=== PATIENT | male | born 1955 | race Caucasian/White ===

== ENCOUNTER 2019-01-21 06:22 | Observation (INO) | payer BC ==
[~2019-01-21] VITALS: Ht 177.8 cm; Wt 81.4 kg
--- NOTE | ~2019-01-21 | HEMODYNAMI ---
PATIENT:DAVID SALGADO MEDICAL RECORD: [id number] : 59 LOCATION:[facility] ADMISSION DATE: 01/21/19 Generatedon:01/21/20197:47 Patient name: DAVID SALGADO Patient #: [id number] SSN: : 1955 Date of study: 01/21/2019 Page: Of Hemodynamic Procedure Report Patient Data Patient Demographics Procedure consent was obtained First Name: DAVID Gender: Male Last Name: NAOMI : 1955 Middle Initial: M Age: 63 year(s) Patient #: [id number] Race: Unknown Additional ID: [id number] Contact details Address: [facility] [place] State: [place] City: [place] Zip code: [address] Past Medical History Allergies Allergen Reaction Date Comments Reported Codeine 01/21/2019 Admission Admission Data Admission Date: 01/21/2019 Admission Time: 6:22 Admit Source: Transfer Insurance Payor: Private acute care facility health insurance Height (in.): 70 BSA: 1.99 (m2) Height (cm.): 177.8 BMI: 25.74 (kg/m2) Weight (lbs.): 179.37 Weight (kg.): 81.36 Lab Results Lab Result Date: 01/21/2019 Lab Result Time: 0:00 Biochemistry Name Units Result Min Max BUN mg/dl 15 --(--*-)-- 7 18 Creatinine mg/dl 1.1 --(--*-)-- 0.6 1.3 CBC Name Units Result Min Max Hematocrit % 40.5 -*(----)-- 42 54 Hemoglobin g/dl 14 --(*---)-- 13.5 17.5 Procedure Procedure Types Cath Procedure Diagnostic Procedure [facility] w/Coronaries PCI Procedure AMI/SVG/PHOTO MASK CLEANER PTCA or Stent Procedure Description Procedure Date Procedure Date: 01/21/2019 Procedure Start Time: 7:36 Procedure End Time: 7:46 Procedure Staff Name Function Vasyl Bradley MD Performing Physician Beatrice Mosqueda RT Monitor Jennifer Kumar RN Nurse Geraldine Mendez RN Beef Cattle Farm Worker Lexa Henao RT Scrub Additional PCI Information PCI indication: Immediate PCI for STEMI Procedure Data Cath Procedure Fluoroscopy Diagnostic fluoroscopy Total fluoroscopy Time: 0.5 time: 0.5 min min Diagnostic fluoroscopy Total fluoroscopy dose: 286 dose: 286 mGy mGy Contrast Material Contrast Material Type Amount (ml) Isovue 300 42 Entry Location Entry Primary Successful Side Size Upsize Upsize Entry Closure Succes sful Closure Location (Fr) 1 (Fr) 2 (Fr) Remarks Device Remarks Femoral Right 6 Fr Exoseal artery Short Estimated blood loss: 5 ml Diagnostic catheters Device Type Used For End Catheter Placement MULTIPACK Pigtail 5 Fr LV Angiography catheter MULTIPACK JL 4.0 5Fr Left Coronary catheter Angiography MULTIPACK 3DRC 5Fr Right Coronary catheter Angiography Procedure Complications No complications Procedure Medications Medication Administration Route Dosage 0.9% NaCl I.V. 100 ml/hr Oxygen etCO2 Nasal cannula 2 l/min Lidocaine 2% added to field 20 Heparin Flush Bag added to field 2 bags (1000units/500ml NS) Versed I.V. 2 mg Fentanyl I.V. 50 mcg Versed I.V. 2 mg Fentanyl I.V. 50 mcg Versed I.V. 2 mg Fentanyl I.V. 50 mcg Hemodynamics Rest BSA: 1.99 (m2) HGB: 14 (g/dl) O2 Consumption: Estimated: 226.58 (ml/min) O2 Cons umption indexed: Estimated:113.86 (ml/min/m) Heart Rate: 61 (bpm) Snapshots Pre Cath Intra NCS Post Cath Vital Signs Time Heart Resp SPO2 etCO2 NIBP (mmHg) Rhythm Pain Sedation Rate (ipm) (%) (mmHg) Status Level (bpm) 7:25:49 70 22 97 27.6 151/71(97) NSR 0 (11) 10(A) , No pain 7:30:03 71 17 99 30 139/97(114) NSR 0 (11) 10(A) , No pain 7:34:54 71 15 96 26.1 147/101(113) NSR 0 (11) 10(A) , No pain 7:39:10 66 12 96 28.2 134/82(103) NSR 0 (11) 10(A) , No pain 7:43:46 67 13 96 20.9 135/83(100) NSR 0 (11) 10(A) , No pain Medications Time Medication Route Dose Verified Delivered Reason Notes Effe ctiveness by by 7:28:01 0.9% NaCl I.V. 100 Vasyl Jennifer used for ml/hr Kirk Kumar cmo 7:28:08 Oxygen etCO2 2 Vasyl Jennifer used for Nasal l/min Kirk Kumar procedure cannula RN 7:28:14 Lidocaine 2% added 20ml Vasyl Vasyl for local to vial Kirk Bradley MD anesthetic field 7:28:18 Heparin Flush added 2 Vasyl Vasyl used for Bag to bags Kirk Bradley MD procedure (1000units/500ml field NS) 7:28:59 Versed I.V. 2 mg Vasyl Jennifer for Kirk Kumar sedation RN 7:29:06 Fentanyl I.V. 50 Vasyl Jennifer for mcg Kirk Kumar sedation RN 7:36:58 Versed I.V. 2 mg Vasyl Jennifer for Kirk Kumar sedation RN 7:37:02 Fentanyl I.V. 50 Vasyl Jennifer for mcg Kirk Kumar sedation RN 7:40:08 Versed I.V. 2 mg Vasyl Jennifer for Kirk Kumar sedation RN 7:40:17 Fentanyl I.V. 50 Vasyl Jennifer for mcg Kirk Kumar sedation picker box operator Log Time Note 7:10:04 Procedure type changed to Cath procedure, Diagnostic procedure, LHC, LHC w/Coronaries, PCI procedure, AMI/SVG/PHOTO MASK CLEANER PTCA or Stent 7:10:25 PCI Indication : Immediate PCI for STEMI 7:10:42 Time tracking: Regular hours (M-F 7:00 - 5:00) 7:10:48 Plan of Care:Hemodynamics will remain stable., Cardiac rhythm will remain stable., Comfort level will be maintained., Respiratory function will remain adequate., Patient/ family verbilizes understanding of procedure., Procedure tolerated without complication., Recovers from procedure without complications.. 7:16:04 Geraldine Mendez RN sent for patient. Start room use. 7:20:52 Patient received from ED to CCL 1 Alert and oriented. Tansferred to table in Supine position. 7:20:53 Warm blankets applied, and viet hugger turned on for patient comfort. 7:20:53 Correct patient and procedure confirmed by team. 7:20:55 Signed procedure consent form obtained from patient. 7:20:55 ECG and BP/O2 sat monitors applied to patient. 7:20:56 Full Disclosure recording started 7:23:04 Baseline sample Acquired. 7:23:07 Rhythm: sinus rhythm 7:23:12 H&P Date Dictated: 01/21/2019 ER History on chart.. 7:23:13 Pre-procedure instructions explained to patient. 7:23:13 Pre-op teaching completed and patient verbalized understanding. 7:23:15 Family in waiting room. 7:23:21 Patient allergic to Codeine 7:23:23 Is patient on blood thinner?Yes 7:23:34 PRE LOADED ON PLAVIX 7:23:35 Patient diabetic? No. 7:23:38 Snore? Yes 7:23:39 Sleep apnea? Yes 7:23:40 Deviated septum? No 7:23:46 Opens mouth fully? Yes 7:23:47 Sticks out tongue? Yes 7:23:50 Airway obstruction? Yes COPD 7:23:53 Dentures? Yes OUT 7:24:19 IV patent on arrival in right antecubital with 0.9% NaCl at O. 7:24:23 Right groin area was prepped with chlora-prep and draped in sterile fashion 7:24:24 Alarms reviewed by R. N. 7:24:25 Sharps counted by scrub and verified by R.N. 7:24:30 Vital chart was started 7:24:33 Baseline sample Acquired. 7:26:08 Lab Result : BUN 15 mg/dl 7:26:08 Lab Result : Hemoglobin 14 g/dl 7:26:08 Lab Result : Creatinine 1.1 mg/dl 7:26:08 Lab Result : Hematocrit 40.5 % 7:26:12 --------ALL STOP TIME OUT------ 7:26:12 Final Timeout: patient, procedure, and site verified with staff and physician. All members of the team are in agreement. 7:26:14 Right groin site verified by team. 7:26:19 Maximum allowable Isovue 300 dose 300ml. Physician notified. (300ml for normal creatinines. For patients with creatinine of 1.7 or higher multiply weight(kg) x 5 divided by creatinine.) 7:26:23 Fire Safety Assessment: A--An alcohol-based skin anteseptic being used preoperatively., C--Open oxygen or nitrous oxide is being used., D--An ESU, laser, or fiber-optic light is being used. 7:26:26 Physical assessment completed. ASA score P 3 - A patient with severe systemic disease as per Beatrice Mosqueda RT(R). 7:26:30 Sedation plan: IV Moderate Sedation Medication:Versed, Fentanyl 7:26:44 Use device set Femoral Dx 7:26:48 Use device set TAUTH PCI 7:27:46 IV Extension Set opened to sterile field. 7:27:49 Quick Combo opened to sterile field. 7:27:53 ACIST Syringe (47825) opened to sterile field. 7:27:54 Bag Decanter (2002) opened to sterile field. 7:27:55 Medline Cath Pack ([id number]) opened to sterile field. 7:27:55 DIAGNOSTIC WIRE .035 260cm J wire (314296) opened to sterile field. 7:27:56 ACIST Hand Control (26634) opened to sterile field. 7:27:57 ACIST Manifold (24611) opened to sterile field. 7:27:58 DIAGNOSTIC Multipack 5Fr catheter set (VW4409) opened to sterile field. 7:27:58 Tegaderm 4 x 4 (1626W) opened to sterile field. 7:28:01 0.9% NaCl 100 ml/hr I.V. was administered by Jennifer Kumar RN; used for procedure; 7:28:01 INFLATOR Merit BasixCompak (AQ4245) opened to sterile field. 7:28:04 CHOICE PT Extra Support 182cm wire ([id number]) opened to sterile field. 7:28:08 Oxygen 2 l/min etCO2 Nasal cannula was administered by Jennifer Kumar RN; used for procedure; 7:28:08 SHEATH 6FR [place] (THH618) opened to sterile field. 7:28:14 Lidocaine 2% 20ml vial added to field was administered by Vasyl Bradley MD; for local anesthetic; 7:28:18 Heparin Flush Bag (1000units/500ml NS) 2 bags added to field was administered by Vasyl Bradley MD; used for procedure; 7:28:59 Versed 2 mg I.V. was administered by Jennifer Kumar RN; for sedation; 7:29:06 Fentanyl 50 mcg I.V. was administered by Jennifer Kumar RN; for sedation; 7:31:33 Zero performed for pressure channel P1 7:31:46 Admit Source: Transfer acute care facility 7:31:51 Patient Weight : 179.37 lbs 7:32:00 Patient Height : 70 inches 7:32:13 Insurance Payor : Private health insurance 7:35:51 Procedure started. 7:36:37 Local anesthetic to right femoral artery with Lidocaine 2% by Vasyl Bradley MD.INITIAL ACCESS ONLY 7:36:58 Versed 2 mg I.V. was administered by Jennifer Kumar RN; for sedation; 7:37:02 Fentanyl 50 mcg I.V. was administered by Jennifer Kumar RN; for sedation; 7:37:07 A 6 Fr Short sheath was inserted into the Right Femoral artery 7:37:16 A MULTIPACK Pigtail 5 Fr catheter was advanced over the wire and used for LV Angiography. 7:37:40 LV gram done using ALMANZA 7:37:44 Injector settings: Ml/sec: 10, Volume: 20, 7:37:50 EF : 60 % 7:37:55 Catheter removed. 7:38:11 A MULTIPACK JL 4.0 5Fr catheter was advanced over the wire and used for Left Coronary Angiography. 7:38:49 Catheter removed. 7:39:28 A MULTIPACK 3DRC 5Fr catheter was advanced over the wire and used for Right Coronary Angiography. 7:39:33 Catheter removed. 7:40:08 Versed 2 mg I.V. was administered by Jennifer Kumar RN; for sedation; 7:40:17 Fentanyl 50 mcg I.V. was administered by Jennifer Kumar RN; for sedation; 7:40:57 Sheath removed intact; hemostasis achieved with Exoseal to the Right Femoral artery. 7:40:59 Procedure ended.(Physican Out) 7:41:11 Fluoroscopy time 00.50 minutes. 7:41:15 Fluoroscopy dose: 286 mGy 7:41:15 Flurop Dose total: 286 7:41:20 Contrast amount:Isovue 300 42ml. 7:41:35 Sharps counted by scrub and verified by R.N. 7:41:37 Insertion/operative site no bleeding no hematoma. 7:41:40 Post-op/insertion site Right Femoral artery dressed using a 4 x 4 and Tegaderm. 7:41:43 Post right femoral artery:stable, clean and dry 7:41:44 Post Procedure Pulses reassessed and unchanged 7:41:48 Post-procedure physical assessment completed. ASA score P 2 - A patient with mild systemic disease as per Vasyl Bradley MD. 7:41:50 Post procedure rhythm: unchanged. 7:41:53 Estimated blood loss: 5 ml 7:41:55 Post procedure instruction explained to patient.Patient verbalizes understanding. 7:41:55 Patient needs reinforcement of post procedure teaching. 7:42:26 Procedure Complication : No complications 7:42:29 See physician's report for complete and final results. 7:45:43 EXOSEAL 5Fr (EX500) opened to sterile field. 7:46:17 Procedure and supply charges have been captured, reviewed, submitted and are correct. 7:46:18 Vital chart was stopped 7:46:25 Report given to Pre/Post Procedure Room. 7:46:30 Patient transfered to Pre/Post Procedure Room with Stretcher. 7:46:42 Procedure ended. 7:46:42 Full Disclosure recording stopped 7:46:45 End room use (Document Last) Device Usage Item Name Manufacture Quantity Catalog Number Hospital Part Current Minim al Lot# / Charge Number Stock Stock Serial# Code IV Hospira 1 40604-65 [id number] 27087 072992 5 Extension Set Quick Combo Edge Systems 1 [id number] 074284 797516 782863 5 ACIST Acist 1 82128 064453 840219 458169 20 Syringe Medical (01560) Systems Inc Bag Microtek 1 2001S 712999 23072 796825 5 Decanter Medical Inc. () Medline Medline 1 [id number] 987949 46359 501970 5 Cath Pack ([id number]) DIAGNOSTIC St Ricky 1 693595 849862 019161 436315 30 WIRE .035 260cm J wire (429175) ACIST Hand Acist 1 84892 974092 347081 631078 5 Control Medical (38792) Systems Inc ACIST Acist 1 44319 746220 228638 241844 5 Manifold Medical (42353) Systems Inc DIAGNOSTIC Cardinal 1 VB7990 420515 06515 009913 30 Multipack Health 5Fr catheter set (FL7437) Tegaderm 4 3M 1 1626W 193664 560020 463778 5 x 4 (1626W) INFLATOR Merit 1 DY9267 715963 216272 532772 15 [employer] Medical BasixCompak (JT0333) CHOICE PT [place] 1 [id number] 860352 041824 572997 5 Extra Scientific Support 182cm wire ([id number]) SHEATH 6FR Terumo 1 DQZ848 268218 189197 418442 40 [place] (KTL238) MULTIPACK Cardinal 1 909898 5 Pigtail 5 Health Fr catheter MULTIPACK Cardinal 1 513808 5 JL 4.0 5Fr Health catheter MULTIPACK Cardinal 1 553103 5 3DRC 5Fr Health catheter EXOSEAL 5Fr Cardinal 1 EX500 027448 459270 499526 10 (EX500) Health Signature Audit [place] Stage Time Signature Unsigned Intra-Procedure 01/21/2019 Beatrice 7:46:56 AM Counts RT(R) Signatures Monitor : Beatrice Signature : Counts RT Date : Time : [address] [address]
[2019-01-21 06:29] VITALS: Ht 177.8 cm; Wt 81.4 kg
[2019-01-21] MEDS ORDERED: ULTRAM50 MG PO (06:30)
[2019-01-21] MEDS ORDERED: ALBUTEROL SULF8.5 GM INH (06:30)
[2019-01-21] MEDS ORDERED: DICLOFENAC SODI50 MG PO (06:30)
[2019-01-21 06:46] LABS: BASOPHILS 0.2 % (0-2); EOSINOPHILS 0.3 % (0-7); HEMATOCRIT 40.5 % (42.0-54.0); IMMATURE GRANULOCYTES 0.2 % (0-5); LYMPHOCYTES 8.6 % (15-50); MCH 31.3 pg (26.0-34.0); MCHC 34.6 g/dL (31.0-37.0); MCV 90.4 fL (80.0-100.0); MONOCYTES 13.2 % (2-11); NEUTROPHILS 77.5 % (40-80); PLATELET COUNT 227 10x3/uL (130-400); RBC 4.48 10x6/uL (4.20-6.10); RDW 13.6 % (11.5-14.5); WBC 15.3 10x3/uL (4.8-10.8)
[2019-01-21 07:01] LABS: ALBUMIN 3.8 g/dL (3.4-5.0); ALKALINE PHOSPHATASE 83 U/L (46-116); ALT (SGPT) 25 U/L (10-68); BILIRUBIN - TOTAL 0.63 mg/dL (0.2-1.3); CALC OSMOLALITY 279 mosm/kg (275-300); CALCIUM 8.6 mg/dL (8.5-10.1); CHLORIDE - SERUM 103 mmol/L (98-107); CREATININE - SERUM 1.1 mg/dL (0.6-1.3); GLUCOSE 113 mg/dL (74-106); POTASSIUM - SERUM 4.2 mmol/L (3.5-5.1); PROTEIN - SERUM 7.6 g/dL (6.4-8.2); SODIUM 139 mmol/L (136-145); UREA NITROGEN 15 mg/dL (7-18); eGFR NON AFRICAN AMERICAN 72 mL/min (90-120)
[2019-01-21 07:07] LABS: LIPASE 450 U/L (73-393); MAGNESIUM - SERUM 1.8 mg/dL (1.8-2.4); PRO BNP 84 pg/mL (0-125); TROPONIN-I < 0.017 ng/mL (0.000-0.060)
[2019-01-21 07:16] VITALS: BP 124/88
[2019-01-21 07:53] LABS: PROTIME 12.7 SECONDS (11.6-15.0)
[2019-01-21 07:54] LABS: D-DIMER-QUANTITATIVE 0.36 ug/mLFEU (0.20-0.54)
--- NOTE | 2019-01-21 08:10 | NUR ---
PATIENT INTERMITTENTLY RESTING, VSS ON ROOM AIR. RIGHT GROIN DRESSING IS CDI, NO S/S OF BLEEDING OR HEMATOMA. NO C/O PAIN,NUMBNESS, OR TINGLING. FAMILY PRESENT AT BEDSIDE.
--- NOTE | 2019-01-21 08:40 | NUR ---
PATIENT INTERMITTENTLY RESTING, AT BEDSIDE. VSS ON 2L NC. RIGHT GROIN DRESSING IS CDI, NO S/S OF BLEEDING OR HEMATOMA.
--- NOTE | 2019-01-21 09:10 | NUR ---
PATIENT AWAKE, ATTEMPTING TO SIT UP IN BED DESPITE INSTRUCTIONS TO KEEP HEAD FLAT ON PILLOW. REMINDED PATIENT AND AT BEDSIDE OF IMPORTANCE IN LAYING FLAT AND KEEPING RIGHT LEG STRAIGHT AND STILL. VSS ON 1L NC. RIGHT GROIN DRESSING IS CDI, NO S/S OF BLEEDING OR HEMATOMA.
--- NOTE | 2019-01-21 09:40 | NUR ---
PATIENT AWAKE, VSS ON 1L NC. RIGHT GROIN DRESSING IS CDI, NO S/S OF BLEEDING OR HEMATOMA. NO C/O PAIN,NUMBNESS, OR TINGLING. NO N/V.
--- NOTE | 2019-01-21 10:10 | NUR ---
PATIENT AWAKE, VSS ON ROOM AIR. RIGHT GROIN DRESSING IS CDI, NO S/S OF BLEEDING OR HEMATOMA. AT BEDSIDE.
--- NOTE | 2019-01-21 10:40 | NUR ---
HEAD OF BED ELEVATED TO 30 DEGREES. RIGHT GROIN DRESSING IS CDI, NO S/S OF BLEEDING OR HEMATOMA. PATIENT GIVEN TURKEY SANDWICH AND SPRITE. VSS ON ROOM AIR.
--- NOTE | 2019-01-21 11:10 | NUR ---
HEAD OF BED AT 90 DEGREES, RIGHT GROIN DRESSING IS CDI, NO S/S OF BLEEDING OR HEMATOMA. NO C/O PAIN, NUMBNESS, OR TINGLING. VSS ON ROOM AIR. IV REMOVED. DISCHARGE INSTRUCTIONS GIVEN TO PATIENT AND SPOUSE, PATIENT VOICES UNDERSTANDING.
--- NOTE | 2019-01-21 11:40 | NUR ---
PATIENT VOIDED WITHOUT DIFFICULTY. PATIENT TRANSPORTED VIA WHEELCHAIR TO CAR WITH SPOUSE DRIVING, ALL BELONGINGS WITH PATIENT.
--- NOTE | 2019-01-24 10:55 | CN ---
PATIENT NAME:DAVID SALGADO MEDICAL RECORD: [id number] : 59 LOCATION:[facility] ADMIT DATE: 01/21/19 ACCOUNT: [id number] CONSULTING PHYSICIAN: LIANNA MCCONNELL MD REFERRING PHYSICIAN: LIANNA MCCONNELL MD DATE OF CONSULTATION: 01/21/2019 ADMITTING DIAGNOSES: 1. Chest pain. 2. Gastroesophageal reflux disease. 3. Chronic obstructive pulmonary disease. 4. Abnormal ECG. HISTORY OF PRESENT ILLNESS: Mr. Salgado presents with weeks of chest pain, but culminating in worsening over the past 2 days. His EKG has possible ST elevation in the inferior leads. PHYSICAL EXAMINATION: GENERAL APPEARANCE: Well-nourished, well-developed, appears stated age. Level of distress, comfortable. PSYCHIATRIC: Mental status, alert, normal affect. Orientation, oriented to time, place and person. EYES: Lids and conjunctiva, noninjected. No discharge, no pallor. ENT: Lips, teeth, gums, normal dentition. Oropharynx, no cyanosis, no pallor. NECK: Carotid arteries, bilateral normal upstroke, no bruits, no thrills. JUGULAR VEINS: No jugular venous pressure or distention. CERVICAL LYMPH NODES: Nontender, nonenlarged. THYROID: Not enlarged. Nontender. No nodules. LUNGS: Respiratory effort, unlabored. CHEST: Normal curvature. No thoracic deformity. No chest wall tenderness. Percussion, resonant. Auscultation, clear. No wheezes, no rales, no rhonchi. CARDIOVASCULAR: Precordial exam, nondisplaced. No heaves or pericardial thrills. Rate and rhythm, regular. Heart sounds, normal S1, normal S2. No S3, no gallop, no rub. Systolic murmur, not heard. Diastolic murmur, not heard. EXTREMITIES: No cyanosis, no edema. Peripheral pulses, full and equal in all extremities, except as noted. No bruits appreciated. ABDOMEN: Soft, nondistended. Normal aorta. No bruit. Nontender. No masses. Liver, nontender, no hepatomegaly. Spleen, nontender, no splenomegaly. MUSCULOSKELETAL: No joint tenderness. No joint swelling. No erythema. NEUROLOGICAL: Normal gait, normal strength, normal tone. SKIN: Warm and dry. OVERALL IMPRESSION: Significant chest pain with abnormal ECG. The ECG is not diagnostic for acute LA, but certainly could be. We will proceed with coronary angiography. Further care depends upon the findings of the angiography. TRANSINT:[id number] Voice Confirmation ID: [id number] DOCUMENT ID: [id number] CONSULT REPORT [id number] DAVID SALGADO, LIANNA BOWERS at 1055 CC: [id number] DICTATION DATE: 01/21/19829 WEB MARKETING SPECIALIST: 01/21/19 08 DIS IN 01/21/[address] [address]
--- NOTE | 2019-01-24 10:55 | OP ---
PATIENT NAME: DAVID SALGADO MEDICAL RECORD: [id number] :59 [facility] ADMISSION DATE:01/21/19 SURGEON: LIANNA MCCONNELL MD DATE OF OPERATION: 01/21/2019 PROCEDURES: 1. Left heart catheterization. 2. Selective coronary angiography. 3. Left ventriculogram. INDICATION: Chest pain compatible with angina, abnormal ECG. PROCEDURE IN DETAIL: After informed consent was obtained and after a detailed description of the risks, benefits as well as alternative therapies, the patient elected to proceed with angiogram and heart catheterization. The right femoral area was prepped and draped in normal sterile fashion. The right femoral artery was cannulated via modified Seldinger technique with placement of 6-Maldivian sheath. All catheters exchanged through this sheath. FINDINGS: Left ventriculogram was performed in standard 30-degree ALMANZA view, reveals good cardiac wall motion throughout all segments. Overall ejection fraction estimated at 60%. SELECTIVE CORONARY ANGIOGRAPHY: Left main, left anterior descending, left circumflex, right coronary artery are all smooth-walled vessels with no angiographic evidence of coronary artery disease. OVERALL IMPRESSION: 1. No angiographic evidence of coronary artery disease. 2. Normal left heart pressures. 3. Normal left ventricular systolic function. Chest pain is noncardiac in etiology. TRANSINT:[id number] Voice Confirmation ID: [id number] DOCUMENT ID: [id number] LIANNA MCCONNELL MD at 1055 CC: [id number] DICTATION DATE: 01/21/19 0745 CLOTH MEASURER MACHINE: 01/21/19 0754 DIS IN 01/21/19 [place] [id number]
== END 2019-01-21 11:40 | disposition home or self-care (01) ==
LOC: D.CATH 06:22 → D.ER 06:22 → EDSTATUS 06:56 → D.CLR 07:47 → OBSVTIME 07:47 → D.CLR 07:53
PROVIDERS: Family Medicine; ADMIT Internal Medicine Interventional Cardiology; ATTEND Internal Medicine Interventional Cardiology
DX: R07.89 Other chest pain (principal); J44.9 Chronic obstructive pulmonary disease, unspecified; K21.9 Gastro-esophageal reflux disease without esophagitis; R94.31 Abnormal electrocardiogram [ECG] [EKG]

== ENCOUNTER → 2020-01-31 11:07 | Outpatient (CLI) | payer OTHER ==
[2019-01-21 06:29] VITALS: BMI 25.7
[~2020-01-31 11:07] MED LIST: ALBUTEROL SULF8.5 GM INH; DICLOFENAC SODI50 MG PO; ULTRAM50 MG PO
== END | disposition home or self-care (01) ==
LOC: D.RT 11:07
PROVIDERS: ATTEND Pediatrics
DX: Z02.71 Encounter for disability determination (principal)